=== PATIENT | male | born 1990 | race Caucasian/White ===

== ENCOUNTER 2017-04-29 16:39 | Emergency (ER) | payer SELFPAY ==
[~2017-04-29] VITALS: Wt 72.6 kg
== END 2017-04-29 17:23 | disposition home or self-care (01) ==
LOC: ED 16:39
DX: S61.211A Laceration without foreign body of left index finger without damage to nail, initial encounter (principal); F17.200 Nicotine dependence, unspecified, uncomplicated; Z23 Encounter for immunization; W26.0XXA Contact with knife, initial encounter; Y93.89 Activity, other specified; Y92.89 Other specified places as the place of occurrence of the external cause; Y99.8 Other external cause status

== ENCOUNTER 2017-12-04 16:34 | Emergency (ER) | payer OTHER ==
[~2017-12-04] VITALS: Ht 175.2 cm; Wt 79.4 kg
[2017-12-04] MEDS ORDERED: LIDEX 0.05% CRE15 GM T (16:46)
== END 2017-12-04 16:51 | disposition home or self-care (01) ==
LOC: ED 16:34
DX: T63.441A Toxic effect of venom of bees, accidental (unintentional), initial encounter (principal); M25.472 Effusion, left ankle; Y92.89 Other specified places as the place of occurrence of the external cause

== ENCOUNTER 2022-10-01 20:23 | Emergency (ER) | payer SELFPAY ==
[~2022-10-01] VITALS: Ht 175.2 cm; Wt 68.0 kg
[~2022-10-01 20:23] MED LIST: LIDEX 0.05% CRE15 GM T
[2022-10-01 21:39] LABS: BASO # 0.1 10*3/uL (0.0-0.1); BASO % 0.6 % (0.0-1.0); EOS # 0.1 10*3/uL (0.0-0.4); EOS % 0.8 % (1.0-4.0); HEMATOCRIT 45.5 % (42.0-52.0); LYMPH # 2.3 10*3/uL (1.3-4.4); MEAN CELL VOLUME 98.9 fl (80.0-94.0); MEAN CORPUSCULAR HGB 32.2 pg (27.0-31.0); MEAN CORPUSCULAR HGB CONC 32.5 g/dl (33.0-37.0); MEAN PLATELET VOLUME 9.5 fl (9.6-12.3); MONO # 0.8 10*3/uL (0.1-1.0); MONO % 7.6 % (3.0-9.0); NEUT # 6.9 10*3/uL (2.3-7.9); NEUT % 67.9 % (47.0-73.0); PLATELET COUNT AUTOMATED 276 10*3/uL (130-400); RED CELL DISTRI WIDTH 13.2 % (0-14.5); WHITE BLOOD COUNT 10.1 10*3/uL (4.8-10.8)
[2022-10-01 22:01] LABS: ALKALINE PHOSPHATASE 60 U/L (46-116); BUN 9 mg/dl (9-23); CHLORIDE 106 mmol/L (98-107); POTASSIUM 3.6 mmol/L (3.4-5.1); SGPT/ALT 13 U/L (10-49); TOTAL PROTEIN 6.9 gm/dL (6.0-8.0)
[2022-10-01 23:11] LABS: BILIRUBIN Negative (Negative); BLOOD 3+ (Negative); CLARITY Clear (Clear); COLOR Yellow (Yellow); GLUCOSE Negative (Negative); KETONE Negative (Negative); LEUKO ESTERASE 1+ (Negative); NITRITE Negative (Negative); PH 5.5 (4.5-8.0); UROBILINOGEN 0.2 E.U./dl (0.0-1.0)
[2022-10-01 23:38] LABS: RBC 21-30 rbc/hpf (0-2)
== END 2022-10-02 01:11 | disposition home or self-care (01) ==
LOC: ED 20:23
PROVIDERS: Student in an Organized Health Care Education/Training Program
DX: N13.9 Obstructive and reflux uropathy, unspecified (principal); N20.0 Calculus of kidney; K80.20 Calculus of gallbladder without cholecystitis without obstruction